=== PATIENT | male | born 1950 | race Caucasian/White ===

== ENCOUNTER 2021-03-03 13:21 | Emergency (ER) | payer MEDICARE ==
[2021-03-03] MEDS ORDERED: SODIUM CHLORIDE 0.9% 1,000 ML IV STA (14:15)
[2021-03-03] MEDS ORDERED: ADENOSINE 6 MG/2 ML VIAL IVP STA (14:15)
--- NOTE | 2021-03-03 14:17 | ED Physician Documentation ---
History of Present Illness - Stated complaint Stated Complaint: LT AND RT SIDE WEAKNESS BALANCE ISSUE - Chief complaint Chief Complaint: Neuro - History obtained from History obtained from: Patient - Additonal information Additional information: 71-year-old gentleman with no pertinent positive medical history although has not seen a doctor since getting out of the in 1992 has felt fatigued and some heaviness in his arms and legs for maybe a couple of months. He felt more tired today and sought medical attention at the behest of his girlfriend. He denies shortness of breath, chest pain or palpitations. No personal history of heart issues. Does not drink heavily and has never smoked. Review of Systems Ten Systems: 10 systems reviewed and negative Constitutional: reports: Myalgias, Fatigue. denies: Fever, Chills Nose: denies: Rhinorrhea / runny nose, Congestion Cardiac: denies: Chest pain / pressure, Palpitations Respiratory: denies: Dyspnea, Cough PD PAST MEDICAL HISTORY - Past Medical History Past Medical History: No - Present Medications Home Medications: Ambulatory Orders Medication Instructions Recorded Confirmed dilTIAZem HCL [Diltiazem 24Hr ER 120 mg PO DAILY #30 cap 03/03/21 (Xr)] metFORMIN [Glucophage] 500 mg PO BIDWM #60 tablet 03/03/21 - Allergies Allergies/Adverse Reactions: Allergies Allergy/AdvReac Type Severity Reaction Status Date / Time No Known Drug Allergies Allergy Verified 03/03/21 13:57 - Social History Does the pt smoke?: No Does the pt drink ETOH?: Yes Does the pt have substance abuse?: No - Family History Family history: reports: Non contributory PD ED PE NORMAL - Vitals Vital signs reviewed: Yes - General General: Alert and oriented X 3, No acute distress - HEENT HEENT: PERRL, EOMI - Neck Neck: Supple, no meningeal sign, Thyroid normal - Cardiac Cardiac: Other (Rapid and regular without murmur) - Respiratory Respiratory: No respiratory distress, Clear bilaterally - Abdomen Abdomen: Normal bowel sounds, Soft, Non tender - Back Back: No CVA TTP, No spinal TTP - Derm Derm: Normal color, Warm and dry - Extremities Extremities: No edema, No calf tenderness / cord - Neuro Neuro: Alert and oriented X 3, Normal speech Results - Vitals Vitals: Vital Signs - 24 hr 03/03/21 03/03/21 03/03/21 13:51 13:56 15:36 Temperature 36.4 C L Heart Rate 142 H 141 H 80 Respiratory 16 23 15 Rate Blood Pressure 155/127 H 161/131 H 131/88 H O2 Saturation 100 98 99 Oxygen O2 Source Room air - EKG (time done) 1359 Rate: Rate (enter#) (141) Rhythm: Other (Exquisitely regular narrow complex tachycardia that I suspect is atrial flutter versus junctional versus an SVT.) Ischemia: ST depression (Probably rate related). No: ST elevation c/w ischemia Computer interpretation: Agree with computer 1419 Rate: Rate (enter#) (104) Rhythm: Sinus tachycardia [place]: Normal Intervals: Prolonged ID (This was only about a minute after adenosine so the long ID may still be from residual adenosine.) QRS: Normal Ischemia: Normal ST segments Computer interpretation: Agree with computer 1549 Rate: Rate (enter#) (79) Rhythm: NSR [place]: Normal Intervals: Normal ID QRS: Normal Ischemia: Normal ST segments - Labs Labs: Laboratory Tests 03/03/21 03/03/21 03/03/21 14:15 14:15 14:15 WBC 7.9 RBC 5.76 Hgb 17.5 Hct 50.1 MCV 87.0 MCH 30.4 MCHC 34.9 RDW 11.9 L Plt Count 248 MPV 9.8 Neut # (Auto) 4.4 Lymph # (Auto) 2.6 Bailey # (Auto) 0.8 Eos # (Auto) 0.1 Baso # (Auto) 0.0 Absolute Nucleated RBC 0.00 Nucleated RBC % 0.0 Sodium 137 Potassium 3.8 Chloride 102 Carbon Dioxide 20 L Anion Gap 15.0 H BUN 26 H Creatinine 1.2 Estimated GFR (MDRD) 60 L Glucose 384 H Calcium 9.5 Magnesium 2.4 Total Bilirubin 1.3 H AST 14 ALT 16 Alkaline Phosphatase 96 Troponin I High Sens 9.0 B-Natriuretic Peptide Total Protein 8.0 Albumin 4.7 Globulin 3.3 Albumin/Globulin Ratio 1.4 TSH 03/03/21 03/03/21 14:15 14:15 WBC RBC Hgb Hct MCV MCH MCHC RDW Plt Count MPV Neut # (Auto) Lymph # (Auto) Bailey # (Auto) Eos # (Auto) Baso # (Auto) Absolute Nucleated RBC Nucleated RBC % Sodium Potassium Chloride Carbon Dioxide Anion Gap BUN Creatinine Estimated GFR (MDRD) Glucose Calcium Magnesium Total Bilirubin AST ALT Alkaline Phosphatase Troponin I High Sens B-Natriuretic Peptide 124 H Total Protein Albumin Globulin Albumin/Globulin Ratio TSH 2.21 - Rads (name of study) 1v chest Radiology: EMP read contemporaneously (NAD) PD MEDICAL DECISION MAKING - ED course ED course: 71-year-old gentleman presents with a rapid narrow complex tachycardia that is exquisitely regular. Most likely to be atrial flutter After the administration of 6 milligrams of adenosine he converted to narrow complex sinus tachycardia with a long ID. This suggests that what we were seeing initially was an SVT although it was a little slow for that. He says he really was asymptomatic except for malaise and arm and leg heaviness for months. This is worrisome for the development of tacky dysrhythmia related cardiomy opathy and will check a chest x-ray and BNP. Around 3 PM his heart rate started to come back up again and he was in the narrow complex tachycardia again and was administered IV diltiazem. A little while after the diltiazem it looks like he converted to normal sinus rhythm on the monitor. Departure - Departure Disposition: 01 Home, Self Care Clinical Impression: SVT (supraventricular tachycardia) Diabetes Qualifiers: Diabetes mellitus type: type 2 Diabetes mellitus shelter insulin use: without terminal makeup operator use Diabetes mellitus complication status: with hyperglycemia Qualified Code(s): E11.65 - Type 2 diabetes mellitus with hyperglycemia Condition: Good Record reviewed to determine appropriate education?: Yes Instructions: ED Hyperglycemia Diabetic, ED Tachycardia Pat PSVT Follow-Up: Sam Lim MD [Credentialed Staff Provider] - Prescriptions: dilTIAZem HCL [Diltiazem 24Hr ER (Xr)] 120 mg PO DAILY #30 cap metFORMIN [Glucophage] 500 mg PO BIDWM #60 tablet Comments: You were seen today for a rapid heart rate that was probably a supraventricular tachycardia. It was initially converted with adenosine but it recurred and then we gave you a longer acting medication chiasm which converted you back to a no rmal rhythm. It also looks like you have type 2 diabetes, I am prescribing medications for both of these, the diltiazem to control the heart rate, and the Metformin for the diabetes. It is important to establish primary care for ongoing evaluation and treatment, also it sounds like you are probably a bit behind on routine care such as prostate checks, colonoscopies etc. Return anytime for new or worsening symptoms.
[2021-03-03 14:24] LABS: BASOPHILS % (AUTO) 0.4 %; EOSINOPHILS # (AUTO) 0.1 10^3/uL (0.0-0.7); HCT - HEMATOCRIT 50.1 % (42.0-52.0); HGB - HEMOGLOBIN 17.5 g/dL (14.0-18.0); LYMPHOCYTES # (AUTO) 2.6 10^3/uL (1.5-3.5); LYMPHOCYTES % (AUTO) 33.2 %; MEAN CORPUSCULAR HEMOGLOBIN 30.4 pg (27.0-31.0); MEAN CORPUSCULAR HGB CONC 34.9 g/dL (32.0-36.0); MEAN PLATELET VOLUME 9.8 fL (7.4-11.4); MONOCYTES # (AUTO) 0.8 10^3/uL (0.0-1.0); MONOCYTES % (AUTO) 10.2 %; NEUTROPHILS # (AUTO) 4.4 10^3/uL (1.5-6.6); NEUTROPHILS % (AUTO) 54.9 %; PLT - PLATELET COUNT 248 10^3/uL (130-450); RED BLOOD COUNT 5.76 10^6/uL (4.70-6.10); RED CELL DISTRIBUTION WIDTH 11.9 % (12.0-15.0); WHITE BLOOD COUNT 7.9 x10^3/uL (4.8-10.8)
[2021-03-03 14:51] LABS: ALBUMIN 4.7 g/dL (3.2-5.5); ALBUMIN/GLOBULIN RATIO 1.4 (1.0-2.2); BILIRUBIN,TOTAL 1.3 mg/dL (0.2-1.0); CALCIUM 9.5 mg/dL (8.5-10.3); CREATININE 1.2 mg/dL (0.6-1.2); MAGNESIUM 2.4 mg/dL (1.7-2.8); POTASSIUM 3.8 mmol/L (3.5-5.0)
--- NOTE | 2021-03-03 15:05 | XRAY Report ---
PROCEDURE: Chest 1 View X-Ray INDICATIONS: tachydysrythmia TECHNIQUE: One view of the chest was acquired. COMPARISON: None FINDINGS: Surgical changes and devices: None. Lungs and pleura: No pleural effusions or pneumothorax. Lungs are clear. Mediastinum: The aorta is prominent and tortuous. The cardiac contours are within normal limits. Bones and chest wall: No suspicious bony lesions. Overlying soft tissues appear unremarkable. IMPRESSION: No acute abnormality is seen on this portable chest study. Reviewed by: Cleve Sanchez MD on 03/03/2021 2:04 PM [facility] Approved by: Cleve Sanchez MD on 03/03/2021 2:04 PM [facility] Station ID: [id number]
[2021-03-03] MEDS ORDERED: diltiaZEM INJ 5 MG/ML VIAL IVP STA ×2 (15:11→15:32)
[2021-03-03 15:37] VITALS: BP 131/88
[2021-03-03] MEDS ORDERED: diltiaZEM CD 120 MG CAPSULE PO STA (15:56)
[2021-03-03] MEDS ORDERED: metFORMIN 500 MG TABLET PO STA (15:59)
== END 2021-03-03 16:09 | disposition home or self-care (01) ==
LOC: ED 13:21
DX: I47.1 Supraventricular tachycardia (principal); E11.65 Type 2 diabetes mellitus with hyperglycemia; Z79.84 Long term (current) use of oral hypoglycemic drugs
CPT/HCPCS: 36415; 71045; 80053; 83735; 83880; 84443; 84484; 85025; 93005; 96374; 96375; 99283; 99284; A9270; J0153

== ENCOUNTER 2021-05-24 10:03 | Outpatient (CLI) | payer MEDICARE ==
[2021-05-24 10:23] LABS: BILIRUBIN,URINE NEGATIVE (NEGATIVE); GLUCOSE, URINE (UA) >=1000 mg/dL (NEGATIVE); KETONES,URINE (UA) TRACE mg/dL (NEGATIVE); LEUKOCYTE ESTERASE, URINE NEGATIVE (NEGATIVE); NITRITE,URINE NEGATIVE (NEGATIVE); OCCULT BLOOD,URINE NEGATIVE (NEGATIVE); PH,URINE 5.5 PH (5.0-7.5); PROTEIN,URINE TRACE mg/dL (NEGATIVE); UROBILINOGEN,URINE 0.2 (NORMAL) E.U./dL (NORMAL)
[2021-05-24 10:24] LABS: CLARITY,URINE CLEAR (CLEAR)
[2021-05-24 10:41] LABS: CALCIUM 9.3 mg/dL (8.5-10.3); CREATININE 0.7 mg/dL (0.6-1.2); POTASSIUM 4.1 mmol/L (3.5-5.0)
[2021-05-24 10:51] LABS: BACTERIA,URINE Few /HPF (None Seen); MUCUS,URINE Few Strands; RBC,URINE 0-5 /HPF (0-5); SQUAMOUS EPITHELIAL CELL,UR NONE SEEN (<= Few); WBC,URINE 0-3 /HPF (0-3)
== END 2021-05-24 10:04 | disposition home or self-care (01) ==
LOC: LAB 10:03
PROVIDERS: ATTEND Internal Medicine Cardiovascular Disease
DX: I10 Essential (primary) hypertension (principal)
CPT/HCPCS: 36415; 80048; 81001; 82088; 83721; 83835; 84244; 87086

== ENCOUNTER 2021-08-01 11:31 | Outpatient (CLI) | payer MEDICARE ==
[2021-08-01 14:32] LABS: BUN - BLOOD UREA NITROGEN 24 mg/dL (6-20); CALCIUM 9.3 mg/dL (8.5-10.3); CARBON DIOXIDE - CO2 23 mmol/L (21-32); CHLORIDE 101 mmol/L (101-111); CHOL/HDL RATIO 4.8 (<5.0); CHOLESTEROL 183 mg/dL; GFR - MDRD 74 (>89); GLUCOSE 303 mg/dL (70-100); HDL CHOLESTEROL 38 mg/dL; LDL CHOLESTEROL,CALCULATED 97 mg/dL; LDL/HDL RATIO 2.6 (<3.6); POTASSIUM 4.5 mmol/L (3.5-5.0); SODIUM 133 mmol/L (135-145); TRIGLYCERIDES 241 mg/dL; VLDL CHOLESTEROL 48 mg/dL
[2021-08-02 17:09] LABS: FREE TESTOSTERONE(DIRECT) 12.4 pg/mL (6.6-18.1)
== END 2021-08-01 11:32 | disposition home or self-care (01) ==
LOC: LAB.S 11:31
PROVIDERS: ATTEND Internal Medicine Cardiovascular Disease
DX: I10 Essential (primary) hypertension (principal)
CPT/HCPCS: 36415; 80048; 80061; 83721; 84402; 84403

== ENCOUNTER 2021-12-24 07:52 | Outpatient (CLI) | payer MEDICARE ==
[2021-12-24 14:54] LABS: CALCIUM 9.4 mg/dL (8.5-10.3); CREATININE 1.1 mg/dL (0.6-1.2); POTASSIUM 5.1 mmol/L (3.5-5.0)
[2021-12-24 15:33] LABS: CREATININE,URINE 211.1 mg/dL; MICROALBUM/CREATININE RATIO,UR 6.6 ug/mg (<30.0); MICROALBUMIN,URINE 1.4 mg/dL (0-300.0)
[2021-12-24 21:11] LABS: ESTIMATED AVERAGE GLUCOSE 140 mg/dL (70-100); HEMOGLOBIN A1c% 6.5 % (4.27-6.07)
== END 2021-12-24 07:53 | disposition home or self-care (01) ==
LOC: LAB.S 07:52
PROVIDERS: ATTEND Registered Nurse
DX: E11.8 Type 2 diabetes mellitus with unspecified complications (principal)
CPT/HCPCS: 36415; 80048; 82043; 82570; 83036